=== PATIENT | male | born 1975 | race Caucasian/White ===

== ENCOUNTER 2021-04-13 16:40 | Emergency (ER) | payer SELFPAY ==
[~2021-04-13] VITALS: Ht 162.6 cm; Wt 74.8 kg
--- NOTE | 2021-04-13 16:40 | NUR ---
denise JACOME CHP to chair Shanna
[2021-04-13 16:42] VITALS: BP 108/78
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
== END 2021-04-13 17:10 | disposition home or self-care (01) ==
LOC: MED 16:40
DX: Z02.89 Encounter for other administrative examinations (principal); V47.5XXA Car driver injured in collision with fixed or stationary object in traffic accident, initial encounter; Y93.89 Activity, other specified; Y92.89 Other specified places as the place of occurrence of the external cause; Y99.8 Other external cause status
CPT/HCPCS: 90471; 90715; 99283